=== PATIENT | female | born 1965 | race Caucasian/White ===

== ENCOUNTER 2019-11-12 15:10 | Outpatient (CLI) | payer MEDICAID, SELFPAY ==
--- NOTE | 2019-11-12 15:30 | CT_ITS ---
WS: [id number] EXAM: CT sinus wo con* [id number] DATE OF EXAMINATION: 11/12/2019, 1544 hours COMPARISON: None. HISTORY: 54 years old with sinus pressure. Sinus headaches. Drainage into the throat. TECHNIQUE: Transaxial computed tomography images obtained through the abdomen and pelvis without utilization of contrast. Images viewed in multiple windows with reconstructions. DLP: 308.[address] scans at [facility] use at least one of these dose optimization techniques: automat ed exposure control; mA and/or kV adjustment per patient size (includes targeted exams where dose is matched to clinical indication); or iterative reconstruction. FINDINGS: Frontal sinuses: Minimally pneumatized on the right. Pneumatized on the left and well aerated. Ethmoid sinuses: Prior labyrinths decompression changes. Slight mucosal thickening and scattered insp issated secretions remain. Both ostiomeatal complexes have been resected. Maxillary sinuses: Prior medial antrectomy changes. Extensive mucosal thickening and tenacious secret ions within both maxillary sinuses. Sphenoid sinuses: Pneumatized and well aerated. Nasal septum has been partially resected posteriorly. There has been resection of both inferior turbinates. Mastoid air cells are pneumatized and well aerated. On axial imaging there are findings of bowing deformities within both lamina papyracea. Suspected old fracture deformity on the right. CT/CT sinus wo con* [id number] IMPRESSION: Findings of prior sinus surgery decompression changes as described. Fairly exte nsive residual chronic sinusitis changes in the maxillary sinuses and to lesser degree remaining ethmoid labyrinths.
== END 2019-11-12 15:11 | disposition home or self-care (01) ==
LOC: RADWPI 15:10
PROVIDERS: Visit Provider Physician Assistant
DX: J32.9 Chronic sinusitis, unspecified (principal)
CPT/HCPCS: 70486